=== PATIENT | female | born 2000 | race African-American/Black ===

== ENCOUNTER 2018-01-06 09:13 | Emergency (ER) | payer MEDICAID ==
[~2018-01-06] VITALS: Ht 170.2 cm; Wt 61.2 kg
[2018-01-06 09:20] VITALS: BP_SYST 122
[2018-01-06] MEDS ORDERED: NACL 0.9% 1,000 ML IV ONE ×2 (09:25→11:15)
[2018-01-06] MEDS ORDERED: KETOROLAC TROMETHAMINE 30 MG VIAL IVP ONE (09:30)
[2018-01-06] MEDS ORDERED: ONDANSETRON HCL 4 MG/2 ML VIAL IVP ONE (09:30)
[2018-01-06 09:44] LABS: BILIRUBIN,URINE 1+ (NEGATIVE); CLARITY/URINE SL HAZY (CLEAR); COLOR,URINE YELLOW (YELLOW); GLUCOSE,URINE NEGATIVE (NEGATIVE); KETONES,URINE NEGATIVE (NEGATIVE); LEUKOCYTE ESTERASE ,URINE TRACE (NEGATIVE); NITRITE, URINE NEGATIVE (NEGATIVE); PROTEIN URINE 3+ (NEGATIVE)
[2018-01-06 09:50] LABS: BASOPHILS % (AUTO) 0.2 % (0.0-2.0); EOSINOPHILS % (AUTO) 0.1 % (0.0-4.0); HEMATOCRIT 32.2 % (36-48); HEMOGLOBIN 10.2 g/dL (12.0-16.0); LYMPHOCYTES # (AUTO) 0.8 K/uL (1.0-5.5); LYMPHOCYTES % (AUTO) 19.7 % (20.5-51.5); MEAN CORPUSCULAR HEMOGLOBIN 23 pg (27-31); MEAN CORPUSCULAR HGB CONC 32 % (32-36); MEAN CORPUSCULAR VOLUME 72 fL (79.0-98.0); MONOCYTES # (AUTO) 0.5 K/uL (0.0-1.0); MONOCYTES % (AUTO) 13.3 % (1.7-9.3); NEUTROPHILS # (AUTO) 2.5 K/uL (1.8-7.7); NEUTROPHILS % (AUTO) 66.7 % (40.0-70.0); PLATELET COUNT (AUTO) 213 K/uL (130-430); RED BLOOD CELL COUNT(AUTO) 4.46 MIL/uL (4.2-6.2); RED CELL DISTRIBUTION WIDTH 15.1 % (9.0-15.0); WHITE BLOOD COUNT (AUTO) 3.8 K/uL (4.5-11.0)
[2018-01-06 09:51] LABS: BLOOD, URINE TRACE (NEGATIVE)
[2018-01-06 09:55] LABS: BACTERIA,URINE MANY /HPF (None Seen)
[2018-01-06 09:56] LABS: MUCUS,URINE None Seen /LPF (None Seen); YEAST,URINE Rare /HPF (None Seen)
[2018-01-06 09:59] LABS: CALCIUM 9.2 mg/dL (8.4-11.0); CREATININE 0.88 mg/dL (0.55-1.30); POTASSIUM 3.8 mmol/L (3.5-5.1)
[2018-01-06 10:06] LABS: ALBUMIN 3.5 g/dL (3.4-4.8); TOTAL BILIRUBIN 1.5 mg/dL (0.0-1.0)
[2018-01-06 10:19] LABS: STREPTOCOCCUS A SCREEN (RAPID) NEGATIVE (NEGATIVE)
[2018-01-06 12:25] VITALS: BP_SYST 120
== END 2018-01-06 12:25 | disposition home or self-care (01) ==
LOC: SED 09:13
DX: J10.1 Influenza due to other identified influenza virus with other respiratory manifestations (principal)
CPT/HCPCS: 36415; 80053; 81000; 81025; 82150; 83690; 85025; 86403; 86710; 87081; 87086; 96361; 96374; 96375; 99284; J1885; J2405; J7030

== ENCOUNTER 2018-01-12 04:13 | Emergency (ER) | payer MEDICAID ==
[~2018-01-12] VITALS: Ht 170.2 cm; Wt 61.2 kg
[2018-01-12 04:20] VITALS: BP_SYST 119
[2018-01-12] MEDS ORDERED: NACL 0.9% 1,000 ML IV ONE (05:00)
[2018-01-12] MEDS ORDERED: KETOROLAC TROMETHAMINE 30 MG VIAL IVP ONE (05:00)
[2018-01-12 05:38] LABS: BILIRUBIN,URINE 1+ (NEGATIVE); BLOOD, URINE NEGATIVE (NEGATIVE); CLARITY/URINE CLEAR (CLEAR); COLOR,URINE YELLOW (YELLOW); GLUCOSE,URINE NEGATIVE (NEGATIVE); KETONES,URINE NEGATIVE (NEGATIVE); LEUKOCYTE ESTERASE ,URINE 1+ (NEGATIVE); NITRITE, URINE NEGATIVE (NEGATIVE); PH,URINE 6.5 (5.0-8.0); PROTEIN URINE 1+ (NEGATIVE)
[2018-01-12 05:54] LABS: RBC,URINE 0-3 /HPF (0-3)
[2018-01-12 05:55] LABS: BACTERIA,URINE MODERATE /HPF (None Seen); MUCUS,URINE 1+ /LPF (None Seen)
[2018-01-12 05:59] LABS: HEMATOCRIT 28.3 % (36-48); HEMOGLOBIN 8.6 g/dL (12.0-16.0); MEAN CORPUSCULAR HEMOGLOBIN 22 pg (27-31); MEAN CORPUSCULAR HGB CONC 30 % (32-36); MEAN CORPUSCULAR VOLUME 71 fL (79.0-98.0); PLATELET COUNT (AUTO) 240 K/uL (130-430); RED BLOOD CELL COUNT(AUTO) 3.96 MIL/uL (4.2-6.2); RED CELL DISTRIBUTION WIDTH 14.3 % (9.0-15.0)
[2018-01-12 06:00] LABS: ALBUMIN 3.1 g/dL (3.4-4.8); CALCIUM 8.6 mg/dL (8.4-11.0); CREATININE 0.7 mg/dL (0.55-1.30); POTASSIUM 3.8 mmol/L (3.5-5.1); TOTAL BILIRUBIN 1.1 mg/dL (0.0-1.0)
[2018-01-12] MEDS ORDERED: AMPICILLIN SODIUM/SULBACTAM NA 1.5 GM VIAL ONE (06:24)
[2018-01-12 06:28] LABS: LYMPHOCYTES % (MANUAL) 12 % (20-46)
[2018-01-12 06:29] LABS: BASOPHILS % (MANUAL) 0 % (0-2); EOSINOPHILS % (MANUAL) 0 % (0-7); MONOCYTES % (MANUAL) 6 % (0-11)
[2018-01-12] MEDS ORDERED: AMPICILLIN SODIUM/SULBACTAM NA 1.5 GM in NS 50 ML IV ONE (06:30)
[2018-01-12 06:33] VITALS: BP_SYST 121
== END 2018-01-12 06:33 | disposition home or self-care (01) ==
LOC: SED 04:13
DX: J10.1 Influenza due to other identified influenza virus with other respiratory manifestations (principal); B34.9 Viral infection, unspecified
CPT/HCPCS: 36415; 80053; 81000; 85007; 85027; 87086; 96374; 99284; J0295; J1885; J7030

== ENCOUNTER 2018-12-06 10:09 | Emergency (ER) | payer MEDICAID ==
[~2018-12-06] VITALS: Ht 170.2 cm; Wt 65.8 kg
[2018-12-06 10:16] VITALS: BP_SYST 149
[2018-12-06 11:04] VITALS: BP_SYST 140
== END 2018-12-06 11:04 | disposition home or self-care (01) ==
LOC: SED 10:09
DX: T78.3XXA Angioneurotic edema, initial encounter (principal); R03.0 Elevated blood-pressure reading, without diagnosis of hypertension
CPT/HCPCS: 99283

== ENCOUNTER 2021-08-04 22:52 | Emergency (ER) | payer BC, MEDICAID ==
[~2021-08-04] VITALS: Ht 170.2 cm; Wt 63.5 kg
[2021-08-04 23:25] VITALS: BP_SYST 120
--- NOTE | 2021-08-04 23:55 | NUR ---
Patient ambulatory to bed 2 for evaluation
[2021-08-05 01:09] LABS: BILIRUBIN,URINE NEGATIVE (NEGATIVE); BLOOD, URINE 3+ (NEGATIVE); CLARITY/URINE CLEAR (CLEAR); COLOR,URINE YELLOW (YELLOW); GLUCOSE,URINE NEGATIVE (NEGATIVE); KETONES,URINE NEGATIVE (NEGATIVE); LEUKOCYTE ESTERASE ,URINE NEGATIVE (NEGATIVE); NITRITE, URINE NEGATIVE (NEGATIVE); PH,URINE 6.5 (5.0-8.0); PROTEIN URINE NEGATIVE (NEGATIVE)
[2021-08-05] MEDS ORDERED: NACL 0.9% 1,000 ML IV ONE (01:15)
[2021-08-05] MEDS ORDERED: DEXAMETHASONE SOD PHOSPHATE 10 MG/ML VIAL IVP ONE (01:15)
[2021-08-05] MEDS ORDERED: KETOROLAC TROMETHAMINE 30 MG VIAL IVP ONE (01:15)
[2021-08-05] MEDS ORDERED: PROCHLORPERAZINE EDISYLATE 10 MG/2 ML VIAL IVP ONE (01:15)
[2021-08-05 02:41] LABS: BASOPHILS % (AUTO) 0.4 % (0.0-2.0); EOSINOPHILS % (AUTO) 0.1 % (0.0-4.0); HEMATOCRIT 37.7 % (36-48); LYMPHOCYTES # (AUTO) 0.4 K/uL (1.0-5.5); LYMPHOCYTES % (AUTO) 7.6 % (20.5-51.5); MEAN CORPUSCULAR HEMOGLOBIN 30 pg (27-31); MEAN CORPUSCULAR HGB CONC 35 % (32-36); MEAN CORPUSCULAR VOLUME 87 fL (79.0-98.0); MONOCYTES # (AUTO) 0.4 K/uL (0.0-1.0); MONOCYTES % (AUTO) 6.3 % (1.7-9.3); NEUTROPHILS # (AUTO) 4.9 K/uL (1.8-7.7); NEUTROPHILS % (AUTO) 85.6 % (40.0-70.0); PLATELET COUNT (AUTO) 288 K/uL (130-430); RED BLOOD CELL COUNT(AUTO) 4.33 MIL/uL (4.2-6.2); RED CELL DISTRIBUTION WIDTH 11.7 % (9.0-15.0); WHITE BLOOD COUNT (AUTO) 5.7 K/uL (4.8-10.8)
[2021-08-05 03:20] LABS: CALCIUM 9.2 mg/dL (8.4-11.0); CREATININE 0.74 mg/dL (0.55-1.30); POTASSIUM 3.5 mmol/L (3.5-5.1)
[2021-08-05 03:25] LABS: ALBUMIN 3.6 g/dL (3.4-4.8)
[2021-08-05 04:13] LABS: BACTERIA,URINE FEW /HPF (None Seen)
[2021-08-05] MEDS ORDERED: levoFLOXacin 500 MG TABLET PO ONE (04:30)
[2021-08-05] MEDS ORDERED: PHE25 PO (04:35)
[2021-08-05] MEDS ORDERED: NAPR-686 PO (04:35)
[2021-08-05] MEDS ORDERED: PRED20TA PO (04:35)
--- NOTE | 2021-08-05 04:54 | NUR ---
PATIENT CAME IN C/O GERNALIZED WEAKNESS AND PUFFY EYES. PATIENT WAS ALSO SEEN USING THE BATH ROOM FREQUENT. PATIENT GIVEN iv FLUIDS AND PO FLUIDS TO DRINK. PATIENT DENIES ANY NAUSEA AT THIS TIME. PATIENT SEEN AMBULATING WITH STEADY GAIT. PATIENT GIVEN MEDICATION ORDERED.
[2021-08-05 04:57] VITALS: BP_SYST 133
[2021-08-05 11:01] LABS: ERYTHROCYTE SEDIMENTATION RATE 82 MM/HR (0-20)
== END 2021-08-05 04:57 | disposition home or self-care (01) ==
LOC: SED 22:52
DX: M19.90 Unspecified osteoarthritis, unspecified site (principal); Z88.0 Allergy status to penicillin; Z79.899 Other long term (current) drug therapy; Z20.822 Contact with and (suspected) exposure to COVID-19
CPT/HCPCS: 36415; 80053; 81000; 81025; 83605; 85025; 85651; 87040; 87086; 87426; 96361; 96374; 96375; 99285; J0780; J1100; J1885; J7030

== ENCOUNTER 2023-12-13 14:42 | Emergency (ER) | payer BC ==
[~2023-12-13] VITALS: Ht 170.2 cm; Wt 71.7 kg
[2023-12-13 14:42] VITALS: BP_SYST 129; PULSE 102; RESP 18; TEMP 97.4; O2SAT 100
[~2023-12-13 14:42] MED LIST: NAPR-686 PO; PHE25 PO; PRED20TA PO
[2023-12-13 15:19] LABS: BILIRUBIN,URINE NEGATIVE (NEGATIVE); BLOOD, URINE NEGATIVE (NEGATIVE); COLOR,URINE YELLOW (YELLOW); GLUCOSE,URINE NEGATIVE (NEGATIVE); KETONES,URINE NEGATIVE (NEGATIVE); LEUKOCYTE ESTERASE ,URINE 1+ (NEGATIVE); NITRITE, URINE NEGATIVE (NEGATIVE); PH,URINE 6.5 (5.0-8.0); PROTEIN URINE NEGATIVE (NEGATIVE); UROBILINOGEN,URINE 0.2 (0.2-1.0)
[2023-12-13 15:49] LABS: CLARITY/URINE SLIGHTLY HAZY (CLEAR)
[2023-12-13 16:28] LABS: HCG,QUAL RESULT NEGATIVE (NEGATIVE)
[2023-12-13 16:29] LABS: BACTERIA,URINE MODERATE /HPF (None Seen); MUCUS,URINE None Seen /LPF (None Seen); RBC,URINE 0-3 /HPF (0-3)
== END 2023-12-13 16:55 | disposition home or self-care (01) ==
LOC: SED 14:42
DX: O26.891 Other specified pregnancy related conditions, first trimester (principal); R10.31 Right lower quadrant pain; R10.32 Left lower quadrant pain; Z3A.01 Less than 8 weeks gestation of pregnancy; Z88.0 Allergy status to penicillin
CPT/HCPCS: 36415; 81000; 81001; 81015; 81025; 84702; 84703; 87086; 99283